=== PATIENT | male | born 1935 | race Caucasian/White ===

== ENCOUNTER 2017-08-12 11:13 | Emergency (ER) | END 2017-08-12 15:07 | disposition home or self-care (01) ==

== ENCOUNTER 2018-11-02 12:26 | Emergency (ER) | payer MEDICARE, BC ==
[~2018-11-02] VITALS: Ht 165.1 cm; Wt 77.4 kg
[~2018-11-02 12:26] MED LIST: ACET-2343 PO; ATOR20TA38 PO; ATOR20TA65 PO; BUPR75TA9 PO; CLOP75TA27 PO; CLOP75TA28 PO; DOCU-159 PO; DOXY-214 PO; FAMO20TA18 PO; FER325 PO; FINA5TAB4 PO; GUAI-637 PO; HAL120L PO; IPRA3AMP29 INHALATION; LACT10SO21 PO; MEMA10TA PO; MEMA10TA20 PO; METF-849 PO; METO-448 PO; NITR50CA PO; OLAN5TAB5 PO; OXYB5TAB22 PO; PARO30TA68 PO; POLY15DR42 BOTH EYES; POLY17PO6 PO; POTA20TA15 PO; PSYL0.524 PO; TAMS-14 PO; TRAM50TA PO
[2018-11-02 12:30] VITALS: Ht 165.1 cm; Wt 77.4 kg
[2018-11-02] MEDS ORDERED: SOD CHLORIDE 0.9% 500 ML IV STA (12:51)
[2018-11-02] MEDS ORDERED: ALBUTEROL 0.5% (NEB) 2.5 MG/0.5 ML AMP INH STA (14:21)
[2018-11-02] MEDS ORDERED: IPRATROPIUM (NEB) 0.5 MG/2.5 ML AMP INH STA (14:21)
[2018-11-02] MEDS ORDERED: DEXAMETHASONE 10 MG/ML 1 ML INJ IV ONE (14:30)
[2018-11-02] MEDS ORDERED: SOD CHLORIDE 0.9% 1,000 ML IV ONE (15:00)
[2018-11-02 16:33] VITALS: BP 127/54; PULSE 76; RESP 18
== END 2018-11-02 16:40 | disposition home or self-care (01) ==
LOC: E/R 12:26
DX: D53.9 Nutritional anemia, unspecified (principal); R41.0 Disorientation, unspecified; D69.6 Thrombocytopenia, unspecified; E86.0 Dehydration; I10 Essential (primary) hypertension; E11.9 Type 2 diabetes mellitus without complications; I25.10 Atherosclerotic heart disease of native coronary artery without angina pectoris; J44.9 Chronic obstructive pulmonary disease, unspecified; F17.210 Nicotine dependence, cigarettes, uncomplicated; G30.9 Alzheimer's disease, unspecified; Z86.59 Personal history of other mental and behavioral disorders; Z79.01 Long term (current) use of anticoagulants; Z79.84 Long term (current) use of oral hypoglycemic drugs; Z86.73 Personal history of transient ischemic attack (TIA), and cerebral infarction without residual deficits
CPT/HCPCS: 36415; 71045; 80048; 81003; 82962; 84484; 85025; 85610; 93005; 94644; 96374; 99285; J1100; J7040